=== PATIENT | female | born 1985 | race Hispanic/Latino ===

== ENCOUNTER 2018-11-19 19:44 | Inpatient (IN) | payer OTHER ==
[~2018-11-19] VITALS: Ht 154.9 cm; Wt 117.5 kg
--- OUTSIDE RECORDS SUMMARY | 2018-11-19 19:46 | XMS REPORT | Clinical Summary ---
Author Author [employer] [facility] [facility] [employer] Address Unknown Phone Unavailable Care Team Providers Care Dairy Supplies Sales Representative Name Role Phone Daniel Fermin MD PCP Allergies No Known Allergies Medications End Date Status Medication Sig Dispensed Refills Start Date Active docusate sodium (COLACE) Take 100 mg 0 100 MG capsule by mouth daily. Active Problems Problem Noted Date Status post laparoscopic hysterectomy 07/16/2017 Overview: With bilateral salpingectomy Menorrhagia 07/10/2017 Dysmenorrhea 07/10/2017 Chronic female pelvic pain 07/10/2017 Iron deficiency anemia due to chronic blood loss 07/10/2017 Obesity (BMI 30-39.9) 07/10/2017 Adenomyosis 07/10/2017 Family History Medical History Relation Name Comments Hyperlipidemia Father Cancer Maternal Grandfather Diabetes Maternal Grandmother Hypertension Mother Diabetes Paternal Grandmother Relation Name Status Comments Father Maternal Grandfather Maternal Grandmother Mother Paternal Grandmother Social History Date Tobacco Use Types Packs/Day Years Used Never Smoker Alcohol Use Drinks/Week oz/Week Comments Yes 1 Standard 0.6 drinks or equivalent Sex Assigned at Date Recorded Not on file Industry Job Start Date Occupation Not on file Not on file Not on file Travel End Travel History Travel Start No recent travel history available. Last Filed Vital Signs Not on file Plan of Treatment Health Maintenance Due Date Last Done Comments CERVICAL CANCER SCREENING 2006 INFLUENZA VACCINE 06/05/2018 Results Not on fileafter 11/18/2017 Insurance Payer Benefit Subscriber ID Type Phone Address Plan / Group AETNA AETNA xxxxxxxxxx HMO HMO,POS,EP O, MC/EC Advance Directives Patient has advance care planning documents on file. For more information, yoanna e contact: Michael Young[address] [place] [address]
[2018-11-19] MEDS ORDERED: SODIUM CHLORIDE 0.9% 1000ML 1,000 ML IV STA (20:18)
[2018-11-19] MEDS ORDERED: KETOROLAC TROMETHAMINE 30 MG/ML VIAL IV ONE (20:30)
[2018-11-19] MEDS ORDERED: FAMOTIDINE 20 MG/2 ML VIAL IV ONE (20:30)
[2018-11-19] MEDS ORDERED: ONDANSETRON HCL INJ 2MG/ML 2ML 2 MG/ML VIAL IV ONE (20:30)
--- NOTE | 2018-11-19 21:06 | Diagnostic Imaging Report ---
EXAMINATION: CT of the abdomen and pelvis without contrast. TECHNIQUE: Spiral CT images of the abdomen and pelvis were performed from the lung bases to the lesser trochanters. No intravenous contrast was given per renal stone protocol. Coronal and sagittal reformatted images were obtained. COMPARISON: None. CLINICAL HISTORY:Flank pain and lower abdominal pain for 2 days. DISCUSSION: ABSENCE OF INTRAVENOUS CONTRAST DECREASES SENSITIVITY FOR DETECTION OF FOCAL LESIONS AND VASCULAR PATHOLOGY. ABDOMEN/PELVIS: LOWER THORAX: Unremarkable. HEPATOBILIARY: Moderate hepatomegaly measuring 21 cm at the right mid clavicular line. Diffuse hepatic steatosis. No focal hepatic lesions. No intra or extrahepatic biliary ductal dilation. GALLBLADDER: Multiple 3-4 mm radiopaque stones are noted in the gallbladder lumen, with likely sludge. No wall thickening or pericholecystic fluid. A 2-3 mm stone is noted in the gallbladder neck or proximal cystic duct (series 3, image 66 and coronal image 46). SPLEEN: No splenomegaly. PANCREAS: No focal masses or ductal dilatation. ADRENALS: No adrenal nodules. KIDNEYS/URETERS: No renal, ureteral or bladder calculi, hydronephrosis or obstruction. No contour abnormalities or significant perinephric stranding. PELVIC ORGANS/BLADDER: Bladder is decompressed but grossly unremarkable. Is not visualized. No adnexal masses. PERITONEUM/RETROPERITONEUM: No free air or fluid. LYMPH NODES: No intra-abdominal,retroperitoneal, pelvic or inguinal lymphadenopathy. VESSELS: Unremarkable for noncontrast exam. GI TRACT: Scattered diverticula are noted in the distal descending and sigmoid colon. There is a 6 cm segment of the proximal sigmoid colon which shows moderate wall thickening and mild surrounding inflammatory fat stranding (series 3, image 164 and coronal image 56). Adjacent punctate foci of air are noted in the mesentery (series 3, image 164). No fluid collections. Rest of the bowel shows no dilation, obstruction or wall thickening. BONES AND SOFT TISSUES: No aggressive lytic lesions. Soft tissues are unremarkable.. IMPRESSION: 1. Exam limited by lack of intravenous contrast. 2. Findings in the sigmoid colon consistent with acute diverticulitis, in the appropriate clinical setting. Adjacent punctate foci of air in the mesentery likely reflect contained microperforation. No pneumoperitoneum or abscess formation. 3. No renal, ureteral or bladder calculi. No hydronephrosis or obstruction. 4. Cholelithiasis and likely sludge, without CT evidence of cholecystitis. Signed by: Dr. Jarett Quiroga M.D. on 11/19/2018 9:03 PM
[2018-11-19] MEDS ORDERED: LEVOFLOXACIN 500 MG TAB PO NR (21:45)
[2018-11-19] MEDS ORDERED: METRONIDAZOLE 500MG/NS 100ML 100 ML IV NR (21:45)
[2018-11-19 22:19] LABS: BASOPHILS % 0.2 % (0.0-1.0); EOSINOPHILS # (AUTO) 0.1 (0.0-0.4); EOSINOPHILS % 0.3 % (0.0-6.0); HEMATOCRIT 39.5 % (34.2-44.1); HEMOGLOBIN 13.3 g/dL (12.0-16.0); LYMPHOCYTES # (AUTO) 2.3 (1.0-3.2); LYMPHOCYTES % 13.8 % (18.0-39.1); MEAN CORPUSCULAR HEMOGLOBIN 28.4 pg (28-32); MEAN CORPUSCULAR HGB CONC 33.7 g/dL (31-35); MEAN CORPUSCULAR VOLUME 84.4 fL (81-99); MONOCYTES # (AUTO) 0.4 (0.2-0.8); MONOCYTES % 2.5 % (4.4-11.3); NEUTROPHILS # (AUTO) 13.9 (2.1-6.9); NEUTROPHILS % 82.9 % (38.7-80.0); PLATELET COUNT 339 x10e3/uL (140-360); RED BLOOD COUNT 4.68 x10e6/uL (3.6-5.1); RED CELL DISTRIBUTION WIDTH 12.6 % (11.7-14.4)
[2018-11-19 22:35] LABS: ALANINE AMINOTRANSFERASE 39 IU/L (0-55); ALBUMIN 3.8 g/dL (3.5-5.0); ALKALINE PHOSPHATASE 101 IU/L (40-150); ANION GAP 14.4 mmol/L (8-16); BLOOD UREA NITROGEN 6 mg/dL (7-26); BUN/CREATININE RATIO 8 (6-25); CALCIUM 9.2 mg/dL (8.4-10.2); CARBON DIOXIDE 23 mmol/L (22-29); CHLORIDE 101 mmol/L (98-107); CREATININE, SERUM 0.75 mg/dL (0.57-1.11); EST GLOMERULAR FILTRATION RATE > 60 ML/MIN (60-); GLUCOSE 102 mg/dL (74-118); POTASSIUM 3.4 mmol/L (3.5-5.1); SODIUM 135 mmol/L (136-145)
[2018-11-19 22:52] LABS: CLARITY,URINE SL CLOUDY (CLEAR); COLOR,URINE YELLOW (YELLOW)
[2018-11-19 22:53] LABS: BILIRUBIN,URINE NEGATIVE (NEGATIVE); KETONES,URINE NEGATIVE (NEGATIVE); LEUKOCYTE ESTERASE ,URINE NEGATIVE (NEGATIVE); NITRITE,URINE NEGATIVE (NEGATIVE); PROTEIN,URINE DIPSTICK NEGATIVE (NEGATIVE); URINE UROBILINOGEN 0.2 mg/dL (0.2 - 1)
[2018-11-19 22:59] LABS: BACTERIA,URINE MODERATE /HPF
[2018-11-19 23:00] LABS: EPITHELIAL CELLS,URINE MODERATE /LPF
[2018-11-19] MEDS ORDERED: ENALAPRILAT IV INJ 1.25 MG/ML VIAL IV PRN (23:15)
[2018-11-19] MEDS ORDERED: PROMETHAZINE HCL 25 MG TAB PO PRN ×2 (23:15→23:45)
[2018-11-19] MEDS ORDERED: DIPHENHYDRAMINE HCL INJ 50 MG/ML VIAL IV PRN (23:15)
[2018-11-19] MEDS ORDERED: ZOLPIDEM TARTRATE 5 MG TAB PO PRN (23:15)
[2018-11-19] MEDS ORDERED: LACTATED RINGER'S 1,000 ML IV SCH (23:15)
--- OUTSIDE RECORDS SUMMARY | 2018-11-19 23:44 | XMS REPORT | Clinical Summary ---
Author Author [facility] Address Unknown Phone Unavailable Care Team Providers Care Brake Repair Supervisor Name Role Phone Daniel Fermin MD PCP [...] For more information, yoanna e contact: Michael [place] [address]
--- OUTSIDE RECORDS SUMMARY | 2018-11-19 23:44 | XMS REPORT ---
[facility] Address Unknown Phone Unavailable Care Team Providers Care Mortgage Analyst Name Role Phone Dalia VALDIVIA Unavailable Unavailable Problems This patient has no known problems. Allergies, Adverse Reactions, Alerts This patient has no known allergies or adverse reactions. Medications This patient has no known medications. Results Test Description Test Time Test Comments Text Results Atomic Results Result Comments CT ABDOMEN/PELVIS WO 2018-11-19 20:48:00 [place] [address] Patient Name: CHANTE LONGORIA MR #: [id number] : 1985 Age/Sex: 33/F Req #: [id number] Adm Physician: Ordered by: SRIRAM VALDIVIA MD Report #: [id number] Location: ER Room/Bed: Procedure: [id number] CT/CT ABDOMEN/PELVIS WO Exam Date: 11/19/18 Exam Time: 2029 REPORT STATUS: Signed EXAMINATION: CT of the abdomen and pelvis without contr ast. TECHNIQUE: Spiral CT images of the abdomen and pelvis were performed from the lung bases to the lesser trochanters. No intravenous contrast was given per renal stone protocol. Coronal and sagittal reformatted images were obtained. COMPARISON: None. CLINICAL HISTORY:Flank pain and lower abdominal pain for 2 days. DISCUSSION: ABSENCE OF INTRAVENOUS CONTRAST DECREASES SENSITIVITY FOR DETECTION OF FOCAL LESIONS AND VASCULAR PATHOLOGY. ABDOMEN/PELVIS: LOWER THORAX: Unremarkable. HEPATOBILIARY: Moderate hepatomegaly measuring 21 cm at the right mid clavicular line. Diffuse hepatic steatosis. No focal hepatic lesions. No intra or extrahepatic biliary ductal dilation. GALLBLADDER: Multiple 3-4 mm radiopaque stones are noted in the gallbladder lumen, with likely sludge. No wall thickening or pericholecystic fluid. A 2-3 mm stone is noted in the gallbladder neck or proximal cystic duct (series 3, image 66 and coronal image 46). SPLEEN: No splenomegaly. PANCREAS: No focal masses or ductal dilatation. ADRENALS: No adrenal nodules. KIDNEYS/URETERS: No renal, ureteral or bladder calculi, hydronephrosis or obstruction. No contour abnormalities or significant perinephric stranding. PELVIC ORGANS/BLADDER: Bladder is decompressed but grossly unremarkable. Is not visualized. No adnexal masses. PERITONEUM/RETROPERITONEUM: No free air or fluid. LYMPH NODES: No intra- abdominal,retroperitoneal, pelvic or inguinal lymphadenopathy. VESSELS: Unremarkable for noncontrast exam. GI TRACT: Scattered diverticula are noted in the distal descending and sigmoid colon. There is a 6 cm segment of the proximal sigmoid colon which shows moderate wall thickening and mild surrounding inflammatory fat stranding (series 3, image 164 and coronal image 56). Adjacent punctate foci of air are noted in the mesentery (series 3, image 164). No fluid collections. Rest of the bowel shows no dilation, obstruction or wall thickening. BONES AND SOFT TISSUES: No aggressive lytic lesions. Soft tissues are unremarkable.. IMPRESSION: 1. Exam limited by lack of intravenous contrast. 2. Findings in the sigmoid colon consistent with acute diverticulitis, in the appropriate clinical setting. Adjacent punctate foci of air in the mesentery likely reflect contained microperforation. No pne umoperitoneum or abscess formation. 3. No renal, ureteral or bladder calculi. No hydronephrosis or obstruction. 4. Cholelithiasis and likely sludge, without CT evidence of cholecystitis. Signed by: Dr. Abel Javier M.D. on 11/19/2018 9:03 PM Dictated By: ABEL JAVIER MD 02 Transcribed By: DIANA on 11/19/182102 COPY TO: SRIRAM VALDIVIA MD
[2018-11-20] VITALS (8 sets, daily range): BP systolic 144–167; BP diastolic 72–94
[2018-11-20] MEDS: MORPHINE SULFATE INJ 4 MG/ML INJ 1ML IV PRN ×2 (00:12→05:58)
[2018-11-20] MEDS: METRONIDAZOLE 500MG/NS 100ML IV SCH ×5 (00:12→23:41)
[2018-11-20] MEDS: ONDANSETRON HCL INJ 2MG/ML 2ML 2 MG/ML VIAL IV PRN ×3 (00:12→20:07)
--- NOTE | 2018-11-20 01:24 | NUR ---
PT ARRIVED BY STRETCHER TO ROOM 110. PT IS AAOX3, RR EVEN AND NON-LABORED, ON RA. NO S/SX OF DISTRESS NOTED. PT AMBULATORY TO HOSPITAL BED WITHOUT ASSISTANCE. ORIENTED PT TO HOSPITAL ROOM, CALL LIGHT, PHONE, BED CONTROLS, AND LIGHTS. LEFT PT LAYING SEMI FOWLERS IN BED,BED IN LOW LOCKED POSITION, SIDE RAILS UPX2, CALL LIGHT AND PHONE WITHIN REACH.
[2018-11-20] MEDS ORDERED: INFLUENZA VIRUS VAC SPLIT INJ 0.5 ML SYR IM ONE (02:00)
--- NOTE | 2018-11-20 07:00 | NUR ---
RECEIVED SHIFT CHANGE ROUNDING REPORT FROM NIGHT RN. PT DENIES NEEDS AT THIS TIME.
--- NOTE | 2018-11-20 07:00 | NUR ---
RECEIVED SHIFT CHANGE ROUNDING REPORT FROM NIGHT RN. PT DENIES NEEDS AT THIS TIME.
[2018-11-20 07:14] LABS: BASOPHILS % 0.2 % (0.0-1.0); EOSINOPHILS # (AUTO) 0.1 (0.0-0.4); EOSINOPHILS % 0.7 % (0.0-6.0); HEMOGLOBIN 11.9 g/dL (12.0-16.0); LYMPHOCYTES # (AUTO) 2.1 (1.0-3.2); LYMPHOCYTES % 17.3 % (18.0-39.1); MEAN CORPUSCULAR HEMOGLOBIN 28.3 pg (28-32); MEAN CORPUSCULAR HGB CONC 33.1 g/dL (31-35); MEAN CORPUSCULAR VOLUME 85.5 fL (81-99); MONOCYTES # (AUTO) 0.5 (0.2-0.8); MONOCYTES % 4.1 % (4.4-11.3); NEUTROPHILS # (AUTO) 9.3 (2.1-6.9); NEUTROPHILS % 77.4 % (38.7-80.0); PLATELET COUNT 287 x10e3/uL (140-360); RED BLOOD COUNT 4.21 x10e6/uL (3.6-5.1); RED CELL DISTRIBUTION WIDTH 12.7 % (11.7-14.4)
[2018-11-20] MEDS ORDERED: HYDROCODONE/APAP 10MG-325MG TAB PO PRN (07:15)
[2018-11-20] MEDS ORDERED: POTASSIUM CHLORIDE 20MEQ/100ML 100 ML IV ONE (07:15)
[2018-11-20] MEDS ORDERED: HYDRALAZINE HCL 20 MG/ML VIAL IV PRN (07:30)
[2018-11-20] MEDS ORDERED: MORPHINE SULFATE INJ 4 MG/ML INJ 1ML IV PRN (07:30)
[2018-11-20 07:32] LABS: ANION GAP 12.5 mmol/L (8-16); BLOOD UREA NITROGEN 6 mg/dL (7-26); CARBON DIOXIDE 24 mmol/L (22-29); CHLORIDE 104 mmol/L (98-107); EST GLOMERULAR FILTRATION RATE > 60 ML/MIN (60-); GLUCOSE 93 mg/dL (74-118); POTASSIUM 3.5 mmol/L (3.5-5.1); SODIUM 137 mmol/L (136-145)
[2018-11-20 07:52] LABS: BUN/CREATININE RATIO 8 (6-25); CALCIUM 8.6 mg/dL (8.4-10.2); CREATININE, SERUM 0.71 mg/dL (0.57-1.11)
[2018-11-20] MEDS: LEVOFLOXACIN 500MG/D5W 100ML 100 ML IV SCH (08:08)
[2018-11-20] MEDS: FAMOTIDINE 20 MG/2 ML VIAL IV SCH ×2 (08:08→16:54)
[2018-11-20] MEDS ORDERED: FAMOTIDINE 20 MG/2 ML VIAL IV SCH (09:00)
[2018-11-20] MEDS: ACETAMINOPHEN 325 MG TAB PO PRN (12:14)
--- NOTE | 2018-11-20 13:27 | Consultation ---
DATE OF CONSULTATION: November 20, 2018 CHIEF COMPLAINT: Abdominal pain. HISTORY OF PRESENT ILLNESS: The patient is a 33-year-old female with a 3-day history of pain in the lower abdomen of sudden onset. Patient denies fever or chills. The pain has been progressive and peaked about 24 hours ago. Since hospitalization, the patient states the pain has improved. She has started passing flatus. She has no previous episode. PAST MEDICAL HISTORY: Positive for hypertension. SURGICAL HISTORY: Unremarkable. ALLERGIES: SHE HAS NO DRUG ALLERGIES. SOCIAL HISTORY: Patient denies smoking or alcohol abuse. REVIEW OF SYSTEMS: No chest pain or shortness of breath. PHYSICAL EXAMINATION VITALS: Stable. Mildly tachycardic. Heart rate 109. GENERAL: She is awake, alert and in mild discomfort. HEENT: Sclerae anicteric. NECK: Supple. LUNGS: Clear. HEART: Regular rate and rhythm. ABDOMEN: Soft with some mild guarding in the left lower quadrant with minimal rebound. EXTREMITIES: Without cyanosis or edema. White cell count is 12, hemoglobin of 12. Creatinine of 0.7. CT of the abdomen showed sigmoid diverticulitis with small foci of air in the mesentery suggestive of microperforation. ASSESSMENT: Microperforation associated with sigmoid diverticulitis. Improving on antibiotics. Tolerating liquid diet. PLAN: Continue IV antibiotics. Slowly advance diet as tolerated. Thank you for the consultation. Job#: [id number] ANGELICA
[2018-11-20] MEDS ORDERED: LACTATED RINGER'S 1,000 ML IV ONE (20:00)
[2018-11-21] VITALS (7 sets, daily range): BP systolic 121–160; BP diastolic 82–102
[2018-11-21 03:21] LABS: BASOPHILS % 0.3 % (0.0-1.0); EOSINOPHILS # (AUTO) 0.2 (0.0-0.4); EOSINOPHILS % 1.7 % (0.0-6.0); HEMATOCRIT 34.2 % (34.2-44.1); HEMOGLOBIN 11.4 g/dL (12.0-16.0); LYMPHOCYTES # (AUTO) 2.3 (1.0-3.2); LYMPHOCYTES % 26.1 % (18.0-39.1); MEAN CORPUSCULAR HEMOGLOBIN 28.2 pg (28-32); MEAN CORPUSCULAR HGB CONC 33.3 g/dL (31-35); MEAN CORPUSCULAR VOLUME 84.7 fL (81-99); MONOCYTES # (AUTO) 0.4 (0.2-0.8); MONOCYTES % 4.6 % (4.4-11.3); NEUTROPHILS # (AUTO) 5.9 (2.1-6.9); NEUTROPHILS % 67.1 % (38.7-80.0); PLATELET COUNT 267 x10e3/uL (140-360); RED BLOOD COUNT 4.04 x10e6/uL (3.6-5.1); RED CELL DISTRIBUTION WIDTH 12.7 % (11.7-14.4)
[2018-11-21 03:34] LABS: ANION GAP 10.4 mmol/L (8-16); BLOOD UREA NITROGEN 5 mg/dL (7-26); BUN/CREATININE RATIO 7 (6-25); CALCIUM 8.6 mg/dL (8.4-10.2); CARBON DIOXIDE 25 mmol/L (22-29); CHLORIDE 101 mmol/L (98-107); CREATININE, SERUM 0.71 mg/dL (0.57-1.11); EST GLOMERULAR FILTRATION RATE > 60 ML/MIN (60-); GLUCOSE 93 mg/dL (74-118); MAGNESIUM 2.2 MG/DL (1.3-2.1); POTASSIUM 3.4 mmol/L (3.5-5.1); SODIUM 133 mmol/L (136-145)
[2018-11-21 03:49] LABS: CHOL/HDL RATIO 2.8 (3.0-3.6)
[2018-11-21 04:08] LABS: FREE T4 (FREE THYROXINE) 1.27 ng/dL (0.9-1.8); THYROID STIMULATING HORMONE 1.357 uIU/mL (0.350-4.940)
[2018-11-21] MEDS: METRONIDAZOLE 500MG/NS 100ML IV SCH ×4 (05:40→23:30)
[2018-11-21] MEDS ORDERED: POTASSIUM CHLORIDE 20 MEQ TAB CR PO STA (06:39)
[2018-11-21] MEDS ORDERED: MORPHINE SULFATE INJ 4 MG/ML INJ 1ML IV PRN (06:45)
--- NOTE | 2018-11-21 07:00 | NUR ---
RECEIVED SHIFT CHANGE ROUNDING REPORT FROM NIGHT RN. PT DENIES NEEDS AT THIS TIME.
[2018-11-21] MEDS: FAMOTIDINE 20 MG/2 ML VIAL IV SCH ×2 (07:53→16:56)
[2018-11-21] MEDS: LEVOFLOXACIN 500MG/D5W 100ML 100 ML IV SCH (09:08)
--- NOTE | 2018-11-21 13:30 | NUR ---
LAURA - WITH [employer] CALLED OFFERING DISCHARGE PLANNING ASSISTANCE. LAURA LEFT CONTACT INFORMATION FOR FURTHER ASSISTANCE: DIRECT LINE: (P)[phone]
[2018-11-21] MEDS: ACETAMINOPHEN 325 MG TAB PO PRN (20:20)
[2018-11-22] VITALS: BP 130/73
[2018-11-22 03:30] LABS: BASOPHILS % 0.2 % (0.0-1.0); EOSINOPHILS # (AUTO) 0.3 (0.0-0.4); EOSINOPHILS % 3.7 % (0.0-6.0); HEMATOCRIT 36.1 % (34.2-44.1); HEMOGLOBIN 11.9 g/dL (12.0-16.0); LYMPHOCYTES # (AUTO) 2.4 (1.0-3.2); LYMPHOCYTES % 28.4 % (18.0-39.1); MEAN CORPUSCULAR VOLUME 84.9 fL (81-99); MONOCYTES # (AUTO) 0.4 (0.2-0.8); MONOCYTES % 4.5 % (4.4-11.3); NEUTROPHILS # (AUTO) 5.3 (2.1-6.9); PLATELET COUNT 276 x10e3/uL (140-360); RED BLOOD COUNT 4.25 x10e6/uL (3.6-5.1); RED CELL DISTRIBUTION WIDTH 12.7 % (11.7-14.4)
[2018-11-22 03:48] LABS: ANION GAP 11.6 mmol/L (8-16); BLOOD UREA NITROGEN 6 mg/dL (7-26); BUN/CREATININE RATIO 9 (6-25); CALCIUM 9.4 mg/dL (8.4-10.2); CARBON DIOXIDE 28 mmol/L (22-29); CHLORIDE 101 mmol/L (98-107); CREATININE, SERUM 0.68 mg/dL (0.57-1.11); EST GLOMERULAR FILTRATION RATE > 60 ML/MIN (60-); GLUCOSE 94 mg/dL (74-118); MAGNESIUM 2.1 MG/DL (1.3-2.1); POTASSIUM 3.6 mmol/L (3.5-5.1); SODIUM 137 mmol/L (136-145)
[2018-11-22 04:00] VITALS: BP 125/75
[2018-11-22] MEDS: METRONIDAZOLE 500MG/NS 100ML IV SCH ×2 (06:00→11:29)
[2018-11-22] MEDS ORDERED: LEVAQUIN500 MG PO (06:21)
[2018-11-22] MEDS ORDERED: METRONIDAZOLE500 MG PO (06:21)
[2018-11-22] MEDS ORDERED: ONDANSETRON ODT8 MG PO (06:21)
[2018-11-22] MEDS ORDERED: TYLENOL # 31 EA PO (06:21)
[2018-11-22] MEDS ORDERED: ACETAMINOPHEN/CODEINE 300MG - 30MG TAB PO PRN (06:30)
[2018-11-22 07:55] VITALS: BP 137/96
[2018-11-22 09:20] VITALS: BP 137/96
[2018-11-22] MEDS: LEVOFLOXACIN 500MG/D5W 100ML 100 ML IV SCH (09:20)
[2018-11-22] MEDS: FAMOTIDINE 20 MG/2 ML VIAL IV SCH (09:20)
--- NOTE | 2018-11-22 09:20 | NUR ---
assessment complete no distress noted, updated on poc vocied understanding denies pain at this time, abx to r hand 20g no ss of infiltration noted, no other co voiced call light in reach will continue to monitor
[2018-11-22 11:48] VITALS: BP 119/66
[2018-11-22 15:00] VITALS: BP 145/97
--- NOTE | 2018-11-22 16:55 | Discharge Summary ---
ADMISSION DIAGNOSES 1. Diverticulitis with microperforation. 2. Hypokalemia. 3. Elevated blood pressure without history of hypertension. 4. Morbid obesity. DISCHARGE DIAGNOSES 1. Diverticulitis with microperforation. 2. Hypokalemia. 3. Elevated blood pressure without history of hypertension. 4. Morbid obesity. HISTORY: Patient has no medical history. SURGICAL HISTORY: Hysterectomy. FAMILY HISTORY: Patient's aunt had cancer. Patient's grandmother had a stroke. SOCIAL HISTORY: Patient admits to occasional alcohol use. She denies tobacco and illicit drug use. HOSPITAL COURSE: A 33-year-old female complains of sharp intermittent umbilical pain that began Sunday prior to admission. Nausea and diarrhea that began yesterday. She admits to chills, but denies fever and sick contacts. Nothing improved or worsens the pain. On admission, the patient was started on Levaquin and Flagyl, clear liquid diet, and surgery was consulted. CT of the abdomen showed findings in the sigmoid colon consistent with acute diverticulitis. Adjacent foci of air in the mesentery likely reflects contained microperforation. No pneumoperitoneum or abscess formation. Per surgery recommendations, no surgery is needed at this time. Continue antibiotics and advance diet as tolerated. Prior to discharge, the patient's pain is well controlled. She is tolerating a regular diet. Vital signs are stable. Patient afebrile. She will discharge home and follow up with primary care in 1-2 weeks. Patient understands discharge instructions and agrees to plan. DICTATED BY BRETT GALVEZ NP MARLA BENITEZ MD Job#: [id number] [place]
== END 2018-11-22 17:07 | disposition home or self-care (01) | DRG 392 ==
LOC: ER 19:44 → ERHOLD 23:42 → MED/SURG 11-20 01:24
PROVIDERS: ADMIT Internal Medicine; ATTEND Internal Medicine
DX: K57.20 Diverticulitis of large intestine with perforation and abscess without bleeding (principal); Z68.42 Body mass index [BMI] 45.0-49.9, adult; E87.6 Hypokalemia; R03.0 Elevated blood-pressure reading, without diagnosis of hypertension; E66.01 Morbid (severe) obesity due to excess calories
CPT/HCPCS: 36415; 74176; 80048; 80053; 80061; 81001; 83036; 83735; 84439; 84443; 85025; 87086; 87493; 99284; J1956; J2270; J2405; J3480; J7030; J7121